=== PATIENT | male | born 1955 | race Caucasian/White ===

== ENCOUNTER 2023-02-17 06:42 | Inpatient (IN) | payer MEDICARE, OTHER ==
[2023-02-12 11:31] LABS: BASOPHILS # (AUTO) 0.1 (0.0-0.1); BASOPHILS % 0.6 % (0.0-1.0); EOSINOPHILS # (AUTO) 0.7 (0.0-0.4); EOSINOPHILS % 7.8 % (0.0-6.0); HEMATOCRIT 45.8 % (38.2-49.6); HEMOGLOBIN 15.3 g/dL (14.0-18.0); LYMPHOCYTES # (AUTO) 1.9 (1.0-3.2); MEAN CORPUSCULAR HEMOGLOBIN 29.5 pg (28-32); MEAN CORPUSCULAR HGB CONC 33.4 g/dL (31-35); MEAN CORPUSCULAR VOLUME 88.4 fL (81-99); MONOCYTES % 11.9 % (4.4-11.3); NEUTROPHILS # (AUTO) 4.9 (2.1-6.9); NEUTROPHILS % 57.5 % (38.7-80.0); PLATELET COUNT 213 x10e3/uL (140-360); RED BLOOD COUNT 5.18 x10e6/uL (4.3-5.7); RED CELL DISTRIBUTION WIDTH 17.5 % (11.7-14.4)
[~2023-02-17] VITALS: Ht 170.2 cm; Wt 104.3 kg
[2023-02-17] VITALS (8 sets, daily range): BP systolic 146–147; BP diastolic 88–98; PULSE 80–89; RESP 17–18; TEMP 97.7–98; O2SAT 94–98
[~2023-02-17 06:42] MED LIST: BUPROPION XL150 MG PO; IRON PO; LIPITOR10 MG PO; MULTI-VITAMIN1 EACH PO; OMEPRAZOLE40 MG PO; PRISTIQ ER50 MG PO; VIT B12 PO; VIT B6 PO
[2023-02-17] MEDS ORDERED: LACTATED RINGER'S 1,000 ML ONE (06:58)
[2023-02-17] MEDS ORDERED: CEFAZOLIN SODIUM 2 GM ONE (06:58)
[2023-02-17] MEDS ORDERED: SCOPOLAMINE 1 MG PATCH TOP SCH (07:15)
[2023-02-17] MEDS ORDERED: BUPIVACAINE 0.25% 30ML SDV ONE ×2 (09:01→13:22)
[2023-02-17] MEDS ORDERED: HYDROMORPHONE 1MG/1ML INJ ONE (09:13)
[2023-02-17] MEDS ORDERED: SODIUM CHLORIDE 0.9% 100 ML ONE (09:15)
[2023-02-17] MEDS ORDERED: FIBRIN FROZEN 2 ML SPRAY.GEL TOP ONE (09:41)
[2023-02-17] MEDS ORDERED: SEVOFLURANE INHAL SOLN 250 ML PEN BTL ONE (12:32)
[2023-02-17] MEDS ORDERED: LIDOCAINE HCL 2% LOCAL INJ 5 ML SDV VIAL INJ ONE (12:32)
[2023-02-17] MEDS ORDERED: GLYCOPYRROLATE INJ 0.2 MG/ML VIAL ONE (12:32)
[2023-02-17] MEDS ORDERED: PROPOFOL IV EMULSION 10 MG/ML 20 ML VIAL ONE (12:32)
[2023-02-17] MEDS ORDERED: NEOSTIGMINE 1 MG/ML 10ML VIAL ONE (12:32)
[2023-02-17] MEDS ORDERED: ROCURONIUM BROMIDE 10 MG/ML 5ML VIAL IV ONE (12:32)
[2023-02-17] MEDS ORDERED: ONDANSETRON HCL INJ 2MG/ML 2ML 2 MG/ML VIAL ONE (12:32)
[2023-02-17] MEDS ORDERED: POVIDONE IODINE 0.05% 0.05 % ML PO ONE (12:32)
[2023-02-17] MEDS ORDERED: FENTANYL CITRATE/PF 100MCG/2 ML INJ ONE (12:44)
[2023-02-17] MEDS: SODIUM CHLORIDE 0.9% 1000ML 1,000 ML IV SCH ×3 (12:45→23:56)
[2023-02-17] MEDS: ONDANSETRON HCL INJ 2MG/ML 2ML 2 MG/ML VIAL IV PRN ×2 (12:45→16:41)
[2023-02-17] MEDS: Morphine 2mg Syringe 2 MG/ML SYR IV PRN ×2 (12:45→16:41)
[2023-02-17] MEDS ORDERED: BUPIVACAINE 0.5%/EPI 30 ML SDV INJ ONE (13:22)
[2023-02-17 15:55] LABS: BASOPHILS % 0.3 % (0.0-1.0); EOSINOPHILS % 0.3 % (0.0-6.0); HEMATOCRIT 46.9 % (38.2-49.6); HEMOGLOBIN 15.5 g/dL (14.0-18.0); LYMPHOCYTES # (AUTO) 1.4 (1.0-3.2); LYMPHOCYTES % 9.1 % (18.0-39.1); MEAN CORPUSCULAR HEMOGLOBIN 29.7 pg (28-32); MEAN CORPUSCULAR VOLUME 89.8 fL (81-99); MONOCYTES # (AUTO) 0.9 (0.2-0.8); MONOCYTES % 5.8 % (4.4-11.3); NEUTROPHILS # (AUTO) 12.8 (2.1-6.9); NEUTROPHILS % 84.2 % (38.7-80.0); PLATELET COUNT 250 x10e3/uL (140-360); RED BLOOD COUNT 5.22 x10e6/uL (4.3-5.7); RED CELL DISTRIBUTION WIDTH 16.6 % (11.7-14.4)
[2023-02-17] MEDS: HYDROCODONE/APAP 7.5MG-325MG 1 EA TAB PO PRN (18:28)
[2023-02-17] MEDS: ENOXAPARIN SOD INJ 40 MG/0.4 ML SYR SC SCH (21:08)
[2023-02-18 00:58] VITALS: BP 147/90; PULSE 87; RESP 18; TEMP 97.5; O2SAT 99
[2023-02-18] MEDS: ONDANSETRON HCL INJ 2MG/ML 2ML 2 MG/ML VIAL IV PRN ×2 (04:30→12:14)
[2023-02-18] MEDS: Morphine 2mg Syringe 2 MG/ML SYR IV PRN (04:30)
[2023-02-18 04:56] LABS: BASOPHILS # (AUTO) 0.1 (0.0-0.1); BASOPHILS % 0.5 % (0.0-1.0); EOSINOPHILS # (AUTO) 0.1 (0.0-0.4); EOSINOPHILS % 0.4 % (0.0-6.0); HEMATOCRIT 48.2 % (38.2-49.6); HEMOGLOBIN 15.8 g/dL (14.0-18.0); LYMPHOCYTES # (AUTO) 1.3 (1.0-3.2); LYMPHOCYTES % 9.7 % (18.0-39.1); MEAN CORPUSCULAR HEMOGLOBIN 29.8 pg (28-32); MEAN CORPUSCULAR HGB CONC 32.8 g/dL (31-35); MEAN CORPUSCULAR VOLUME 90.8 fL (81-99); MONOCYTES # (AUTO) 0.8 (0.2-0.8); MONOCYTES % 6.3 % (4.4-11.3); NEUTROPHILS # (AUTO) 10.8 (2.1-6.9); NEUTROPHILS % 82.7 % (38.7-80.0); PLATELET COUNT 234 x10e3/uL (140-360); RED BLOOD COUNT 5.31 x10e6/uL (4.3-5.7); RED CELL DISTRIBUTION WIDTH 16.5 % (11.7-14.4)
[2023-02-18 05:15] VITALS: BP 165/101; PULSE 81; RESP 18; TEMP 98; O2SAT 99
[2023-02-18 05:20] LABS: ALBUMIN 3.5 g/dL (3.5-5.0); ANION GAP 14.3 mmol/L (8-16); CALCIUM 8.5 mg/dL (8.4-10.2); CREATININE, SERUM 0.87 mg/dL (0.72-1.25); POTASSIUM 4.3 mmol/L (3.5-5.1)
[2023-02-18] MEDS: ENOXAPARIN SOD INJ 40 MG/0.4 ML SYR SC SCH (08:14)
[2023-02-18] MEDS: HYDROCODONE/APAP 7.5MG-325MG 1 EA TAB PO PRN ×2 (08:14→12:14)
[2023-02-18 08:30] VITALS: BP 164/101; PULSE 86; RESP 17; TEMP 98.3; O2SAT 96
[2023-02-18 08:38] VITALS: BP 164/101; PULSE 86; RESP 17; TEMP 98.3; O2SAT 96
[2023-02-18] MEDS ORDERED: CLONIDINE HCL 0.1 MG TAB PO ONE (09:15)
[2023-02-18 11:44] VITALS: BP 147/93; PULSE 86; RESP 17; TEMP 98.1; O2SAT 96
[2023-02-18] MEDS ORDERED: ONDANSETRON HCL 4 MG ORAL DISINTEGRATING TAB PO PRN (12:15)
== END 2023-02-18 12:19 | disposition home or self-care (01) | DRG 621 ==
LOC: OR 06:42 → EDSEX 07:00 → PACU V 07:11 → MED/SURG 12:34
PROVIDERS: ADMIT Internal Medicine; ATTEND Internal Medicine
PROC: 0D164ZA Bypass Stomach to Jejunum, Percutaneous Endoscopic Approach (ICD-10-PCS; principal; 2023-02-17 09:28)
DX: E66.01 Morbid (severe) obesity due to excess calories (principal); Z68.36 Body mass index [BMI] 36.0-36.9, adult; G47.33 Obstructive sleep apnea (adult) (pediatric); K21.9 Gastro-esophageal reflux disease without esophagitis; I11.9 Hypertensive heart disease without heart failure; I25.9 Chronic ischemic heart disease, unspecified; E78.5 Hyperlipidemia, unspecified; F32.9 Major depressive disorder, single episode, unspecified
CPT/HCPCS: 36415; 71046; 80053; 83735; 84100; 85025; 93005; 94799; J1170; J1650; J2001; J2270; J2405; J2710; J7030; J7050